=== PATIENT | male | born 1950 | race African-American/Black ===

== ENCOUNTER 2017-02-22 09:04 | Emergency (ER) | payer MEDICARE, MEDICAID ==
[~2017-02-22] VITALS: Ht 180.3 cm; Wt 101.6 kg
[2017-02-22 10:37] LABS: CLARITY URINE CLEAR (CLEAR); COLOR URINE YELLOW (YELLOW); GLUCOSE URINE NEGATIVE (NEGATIVE); KETONES URINE NEGATIVE (NEGATIVE); LEUKOCYTE ESTERASE URINE NEGATIVE (NEGATIVE); NITRITE URINE NEGATIVE (NEGATIVE); OCCULT BLOOD URINE 2+ (NEGATIVE); PROTEIN URINE NEGATIVE (NEGATIVE); SPECIFIC GRAVITY URINE 1.011 (1.005-1.030); UROBILINOGEN URINE 0.2 E.U./dL (0.2-1.0)
[2017-02-22 10:59] LABS: CHLORIDE 106 mEq/L (98-107)
[2017-02-22 11:04] LABS: CARBON DIOXIDE 25 mEq/L (21-32)
[2017-02-22 12:27] VITALS: BP 146/80
== END 2017-02-22 12:42 | disposition home or self-care (01) ==
LOC: ER 09:59
DX: R33.9 Retention of urine, unspecified (principal); E11.9 Type 2 diabetes mellitus without complications; I10 Essential (primary) hypertension; N40.1 Benign prostatic hyperplasia with lower urinary tract symptoms; F12.10 Cannabis abuse, uncomplicated; F17.200 Nicotine dependence, unspecified, uncomplicated
CPT/HCPCS: 36415; 51702; 80048; 81001; 99284; A4315

== ENCOUNTER 2018-02-27 09:25 | Emergency (ER) | payer MEDICARE, MEDICAID ==
[~2018-02-27] VITALS: Ht 182.9 cm; Wt 97.0 kg
[2018-02-27] MEDS ORDERED: FLUORESCEIN SODIUM 1MG/STRIP OP ONE (10:30)
[2018-02-27] MEDS ORDERED: TETRACAINE 0.5% OPHTH DROPS 4ML OP ONE (10:30)
[2018-02-27] MEDS ORDERED: TETANUS, DIPHTHERIA, PERTUSSIS VAC/PF 0.5ML (>7YR OLD) IM ONE (11:45)
[2018-02-27 12:24] VITALS: BP 137/71
== END 2018-02-27 12:25 | disposition home or self-care (01) ==
LOC: ER 11:34
DX: T15.91XA Foreign body on external eye, part unspecified, right eye, initial encounter (principal); X58.XXXA Exposure to other specified factors, initial encounter; F12.10 Cannabis abuse, uncomplicated; F17.290 Nicotine dependence, other tobacco product, uncomplicated; Y93.89 Activity, other specified; Y92.89 Other specified places as the place of occurrence of the external cause; Y99.8 Other external cause status
CPT/HCPCS: 90471; 90715; 99284

== ENCOUNTER 2024-03-23 19:49 | Inpatient (IN) | payer MEDICARE, MEDICAID ==
[~2024-03-23] VITALS: Ht 185.4 cm; Wt 93.0 kg
[2024-03-23 20:58] LABS: BASOPHILS % 0.5 % (0.0-2.0); DIFFERENTIAL COMMENT 0; EOSINOPHILS % 2.5 % (0.0-5.0); HEMATOCRIT. 41.1 % (42.0-52.0); HEMOGLOBIN. 13.6 g/dL (14.0-18.0); LYMPHOCYTES % 21.7 % (20.0-50.0); MEAN CORPUSCULAR HEMOGLOBIN 26.4 pg (28.0-32.0); MEAN CORPUSCULAR VOLUME 79.9 fL (80.0-94.0); MEAN PLATELET VOLUME 8.4 fl (7.4-10.4); MONOCYTES % 6.6 % (2.0-8.0); NEUTROPHILS % 68.7 % (40.0-76.0); PLATELET 238 x1000/uL (130-400); RED BLOOD CELL COUNT 5.14 mill/uL (4.7-6.1); RED CELL DISTRIBUTION WIDTH 15.2 % (11.6-14.6); WHITE BLOOD COUNT 6.1 x1000/uL (4.5-11.0)
[2024-03-23 21:02] LABS: CHLORIDE 106 mEq/L (98-107); POTASSIUM 3.9 mEq/L (3.5-5.1); SODIUM 141 mEq/L (136-145)
[2024-03-23 21:03] LABS: CALCIUM 9.1 mg/dL (8.7-10.4); CARBON DIOXIDE 30 mEq/L (21-32)
[2024-03-23 21:08] LABS: UREA NITROGEN BLOOD 13 mg/dL (9-23)
[2024-03-23 21:10] LABS: ALANINE AMINOTRANSFERASE 12 IU/L (10-49); ALBUMIN 4.3 g/dL (3.2-4.8); ASPARTATE AMINOTRANSFERASE 15 IU/L (<34); BILIRUBIN DIRECT 0.1 mg/dL (<=3.0); BILIRUBIN TOTAL 0.3 mg/dL (0.1-1.0); PROTEIN TOTAL 7.3 g/dL (6.0-8.3); TROPONIN I HIGH SENSITIVITY 5 ng/L (3.0-53)
[2024-03-23 22:07] LABS: GLUCOSE 160 mg/dL (70-105)
[2024-03-23] MEDS: IPRATROPIUM BROMIDE (0.02%) 0.5MG/2.5ML NEB HHN STA (22:55)
[2024-03-23] MEDS: ALBUTEROL (0.083%) 2.5MG/3ML NEB HHN STA (22:55)
[2024-03-23 22:56] VITALS: PULSE 59; RESP 20; O2SAT 96
[2024-03-23] MEDS: METHYLPREDNISOLONE SOD SUCC 125MG/2ML (ACT-O-VIAL) IV STA (23:12)
[2024-03-23] MEDS ORDERED: ONDANSETRON HCL 4MG/2ML INJ IV PRN (23:45)
[2024-03-23] MEDS ORDERED: MAGNESIUM/ALUMINUM HYDROXIDE/SIMETHICONE 30ML UDC PO PRN (23:45)
[2024-03-23] MEDS ORDERED: HYDROCODONE/ACETAMINOPHEN 5/325MG TABLET PO PRN (23:45)
[2024-03-23] MEDS ORDERED: NA PHOS,M-B/NA PHOS,DI-BA ENEMA 118ML PR PRN (23:45)
[2024-03-23] MEDS ORDERED: IPRATROPIUM/ALBUTEROL 0.5-3(2.5)MG/3ML NEB HHN PRN (23:45)
[2024-03-23] MEDS ORDERED: ACETAMINOPHEN 325MG TABLET PO PRN ×2 (23:45)
[2024-03-23] MEDS ORDERED: DOCUSATE SODIUM 100MG CAPSULE PO PRN (23:45)
[2024-03-23] MEDS ORDERED: CLONIDINE 0.1MG TABLET PO PRN (23:45)
[2024-03-23] MEDS ORDERED: GUAIFENESIN 200MG/10ML SUGAR FREE UDC PO PRN (23:45)
[2024-03-23 23:58] VITALS: BP 131/59; PULSE 63; RESP 17; TEMP 36.22512; O2SAT 97
[2024-03-24] VITALS (8 sets, daily range): BP systolic 124–146; BP diastolic 57–69; PULSE 50–66; RESP 12–20; TEMP 36.00288–36.6696; O2SAT 94–99
[2024-03-24] MEDS ORDERED: DEXTROSE 50% WATER 50ML SYRINGE IV PRN
[2024-03-24 00:25] LABS: BG BASE EXCESS 2.1 mmol/L (-2.0-3.0); BG CARBOXYHEMOGLOBIN 0.8 % (0.5-1.5); BG DEOXYHEMOGLOBIN 4.4 % (0.0-5.0); BG FRACTION INSPIRED OXYGEN 28; BG HCO3 ACT 28.1 mmol/L (21.0-28.0); BG METHEMOGLOBIN 0.1 % (0.5-1.5); BG OXYGEN SATURATION 95.6 % (94.0-98.0); BG OXYHEMOGLOBIN 94.7 % (94.0-98.0); BG PH 7.376 (7.350-7.450); BG PO2 83.1 mmHg (83.0-108.0); BG SAMPLE SITE RIGHT RADIAL; BG TOTAL HEMOGLOBIN 13.8 g/dL (13.5-17.5); BG VENT MODE NASAL CANNULA
[2024-03-24 01:41] LABS: PHOSPHORUS 2.9 mg/dL (2.5-4.9); TROPONIN I HIGH SENSITIVITY 12 ng/L (3.0-53)
[2024-03-24] MEDS: MAGNESIUM 2 G PREMIX 50 ML IV NR (04:52)
[2024-03-24] MEDS: BLOOD SUGAR DIAGNOSTIC STRIP TEST SCH (06:45)
[2024-03-24] MEDS: INSULIN LISPRO 100 UNITS/ML SUBCUT SCH (07:33)
[2024-03-24 07:41] LABS: CARBON DIOXIDE 26 mEq/L (21-32); CHLORIDE 107 mEq/L (98-107); POTASSIUM 4.5 mEq/L (3.5-5.1); SODIUM 140 mEq/L (136-145)
[2024-03-24 07:46] LABS: CREATININE 0.9 mg/dL (0.6-1.3)
[2024-03-24 07:47] LABS: GLUCOSE 214 mg/dL (70-105)
[2024-03-24 07:48] LABS: CHOLESTEROL 84 mg/dL (<200); LDL CHOLESTEROL 33 mg/dL (5-100); T4 FREE 1.27 ng/dL (0.89-1.76); TRIGLYCERIDE 40 mg/dL (0-150); UREA NITROGEN BLOOD 11 mg/dL (9-23)
[2024-03-24 07:49] LABS: THYROID STIMULATING HORMONE 0.25 uIU/mL (0.55-4.78)
[2024-03-24 07:50] LABS: HDL CHOLESTEROL 36 mg/dL (>55); TROPONIN I HIGH SENSITIVITY 9 ng/L (3.0-53)
[2024-03-24 07:54] LABS: BASOPHILS % 0.3 % (0.0-2.0); DIFFERENTIAL COMMENT 0; HEMATOCRIT. 40.6 % (42.0-52.0); HEMOGLOBIN. 13.1 g/dL (14.0-18.0); LYMPHOCYTES % 16.5 % (20.0-50.0); MEAN CORPUSCULAR HEMOGLOBIN 25.6 pg (28.0-32.0); MEAN CORPUSCULAR HGB CONC 32.2 g/dL (31.0-37.0); MEAN CORPUSCULAR VOLUME 79.7 fL (80.0-94.0); MEAN PLATELET VOLUME 9.1 fl (7.4-10.4); MONOCYTES % 1.2 % (2.0-8.0); PLATELET 235 x1000/uL (130-400); RED CELL DISTRIBUTION WIDTH 15.4 % (11.6-14.6); WHITE BLOOD COUNT 4.5 x1000/uL (4.5-11.0)
[2024-03-24] MEDS: LOSARTAN 50 MG TABLET PO SCH (09:14)
[2024-03-24] MEDS: FINASTERIDE 5MG TABLET PO SCH (09:14)
[2024-03-24] MEDS: ASPIRIN 81MG TABLET PO SCH (09:14)
[2024-03-24] MEDS: ENOXAPARIN 40MG/0.4ML SYR SUBCUT SCH (09:16)
[2024-03-24] MEDS: TAMSULOSIN HCL 0.4MG SR CAPSULE PO SCH (09:16)
[2024-03-24] MEDS: METHYLPREDNISOLONE SOD SUCC 40MG/ML (ACT-O-VIAL) IV SCH (09:17)
[2024-03-24] MEDS: LEVETIRACETAM 500MG/5ML CUP PO SCH (09:17)
[2024-03-24] MEDS: IPRATROPIUM/ALBUTEROL 0.5-3(2.5)MG/3ML NEB HHN SCH (09:53)
[2024-03-24] MEDS: INSULIN GLARGINE 100 UNITS/ML SUBCUT SCH (10:21)
[2024-03-24] MEDS ORDERED: NALOXONE HCL 0.4MG/ML VIAL IV PRN (18:15)
[2024-03-24 23:11] LABS: TROPONIN I HIGH SENSITIVITY < 4 ng/L (3.0-53)
[2024-03-25] VITALS (9 sets, daily range): BP systolic 136–152; BP diastolic 55–77; PULSE 44–79; RESP 16–20; TEMP 36.3918–36.9474; O2SAT 94–99
[2024-03-25 05:38] LABS: GLUCOSE URINE 1+ (NEGATIVE); KETONES URINE NEGATIVE (NEGATIVE)
[2024-03-25 06:10] LABS: *AMPHETAMINES SCREEN URINE NEGATIVE (NEGATIVE); *BARBITURATES SCREEN URINE NEGATIVE (NEGATIVE); *BENZODIAZEPINES SCREEN URINE NEGATIVE (NEGATIVE); *COCAINE SCREEN URINE NEGATIVE (NEGATIVE); CANNABINOID URINE SCREEN NEGATIVE (NEGATIVE); ECSTASY MDMA SCREEN URINE NEGATIVE (NEGATIVE); METHADONE URINE SCREEN NEGATIVE (NEGATIVE); OPIATES URINE SCREEN NEGATIVE (NEGATIVE); PHENCYCLIDINE URINE SCREEN NEGATIVE (NEGATIVE)
[2024-03-25 06:12] LABS: CLARITY URINE CLEAR (CLEAR); COLOR URINE YELLOW (YELLOW); LEUKOCYTE ESTERASE URINE NEGATIVE (NEGATIVE); NITRITE URINE NEGATIVE (NEGATIVE); OCCULT BLOOD URINE NEGATIVE (NEGATIVE); PH URINE 5.5 (4.5-8.0); PROTEIN URINE NEGATIVE (NEGATIVE); SPECIFIC GRAVITY URINE 1.017 (1.005-1.030); UROBILINOGEN URINE 0.2 E.U./dL (0.2-1.0)
[2024-03-25 06:16] LABS: BACTERIA URINE NONE SEEN; RBC URINE 0-2 /hpf (0-2); SQUAMOUS EPITHELIAL CELL URINE NONE SEEN /lpf (RARE/1+); WBC URINE 0-2 /hpf (0-2)
[2024-03-25] MEDS: METHYLPREDNISOLONE SOD SUCC 40MG/ML (ACT-O-VIAL) IV SCH (08:27)
== END 2024-03-25 15:35 | disposition home health service (06) | DRG 189 ==
LOC: ER 19:49 → 5WST 23:27 → 8WST 03-24 18:00
PROVIDERS: ADMIT Hospitalist; ATTEND Hospitalist
DX: J96.01 Acute respiratory failure with hypoxia (principal); J44.1 Chronic obstructive pulmonary disease with (acute) exacerbation; J96.02 Acute respiratory failure with hypercapnia; E11.9 Type 2 diabetes mellitus without complications; E78.5 Hyperlipidemia, unspecified; G40.909 Epilepsy, unspecified, not intractable, without status epilepticus; I10 Essential (primary) hypertension; N40.0 Benign prostatic hyperplasia without lower urinary tract symptoms; F12.90 Cannabis use, unspecified, uncomplicated; R00.0 Tachycardia, unspecified; Z79.4 Long term (current) use of insulin; Z86.73 Personal history of transient ischemic attack (TIA), and cerebral infarction without residual deficits; Z87.891 Personal history of nicotine dependence
CPT/HCPCS: 36415; 36600; 71045; 80048; 80061; 80076; 80305; 81003; 82375; 82805; 82962; 83036; 83605; 83735; 83880; 84100; 84145; 84439; 84443; 84484; 85025; 85379; 93005; 93306; 94640; 99291; J1650; J1815; J2919; J2920; J3475

== ENCOUNTER 2024-11-12 15:35 | Emergency (ER) | payer MEDICARE, MEDICAID ==
[~2024-11-12] VITALS: Ht 182.9 cm; Wt 97.5 kg
[2024-11-12 15:50] VITALS: BP 150/102; PULSE 80; RESP 16; TEMP 36.6; O2SAT 94; O2SAT 96
[2024-11-12] MEDS ORDERED: FLUT1BLS8 IH (16:04)
== END 2024-11-12 16:29 | disposition home or self-care (01) ==
LOC: ER 15:35
DX: J44.9 Chronic obstructive pulmonary disease, unspecified (principal); Z76.0 Encounter for issue of repeat prescription; I10 Essential (primary) hypertension; F12.90 Cannabis use, unspecified, uncomplicated; Z86.73 Personal history of transient ischemic attack (TIA), and cerebral infarction without residual deficits
CPT/HCPCS: 99281